=== PATIENT | female | born 1970 | race Caucasian/White ===

== ENCOUNTER → 2020-04-08 | Outpatient (REF) | payer SELFPAY | LOC: M LAB REF 19:50 | PROVIDERS: ATTEND Physician Assistant | DX: J02.9 Acute pharyngitis, unspecified (principal) ==

== ENCOUNTER → 2023-05-30 | Outpatient (REF) | LOC: M EMP 08:10 | PROVIDERS: ATTEND Family Medicine | DX: Z11.52 Encounter for screening for COVID-19 (principal) ==